=== PATIENT | male | born 1975 | race Caucasian/White ===

== ENCOUNTER 2017-11-13 09:46 | Emergency (ER) | payer MEDICAID ==
--- NOTE | 2017-11-13 09:58 | EDPHY ---
H & P Time Seen by Provider: 11/13/17 09:58 Constitutional: Initial Vital Signs Temperature (C) 36.5 C 11/13/17 09:53 Heart Rate 94 11/13/17 09:53 Respiratory Rate 16 11/13/17 09:53 Blood Pressure 154/100 H 11/13/17 09:53 O2 Sat (%) 96 11/13/17 09:53 O2 Delivery Mode Room Air Allergies/Adverse Reactions: No Known Allergies Allergy (Unverified 09/09/09 09:12) Home Medications: Medication Instructions Recorded Lisinopril 09/09/09 Lovastatin 09/09/09 Methocarbamol [Robaxin 750 mg (*)] 750 - 1,500 mg PO Q6 PRN #30 tab 09/09/09 oxyCODONE/APAP 5/325 [Percocet 5 - 10 mg PO Q4 PRN #20 tab 09/09/09 5/325] Ciprofloxacin [Cipro] 500 mg PO BID #20 tab 11/13/17 Phenazopyridine HCl [Pyridium] 200 mg PO TID #6 tab 11/13/17 Tamsulosin HCl [Flomax 0.4 MG (*)] 0.4 mg PO DAILY #10 cap 11/13/17 Medical Decision Making ED Course/Re-evaluation: CHIEF COMPLAINT: Right testicle and kidney pain HISTORY OF PRESENT ILLNESS: The patient is a 42 y/o male complaining of right testicular pain and kidney pain. Around noon yesterday, about 22 hours ago, he developed an urge to urinate but when urinating, he had difficulty producing a strong, steady stream. Symptoms continued throughout the night and included frequent urge to urinate. This morning, after urinating, he developed right testicular pain and right kidney pain. He presented to urgent care who administered pain medication and transported him to the ED. He denies hematuria , fever, or any other associated symptoms. REVIEW OF SYSTEMS: A 10 point review of systems was performed and is negative with the exception of the elements mentioned in the history of present illness. PHYSICAL EXAM: HR, BP, O2 Sat, RR. Temp noted General Appearance: Alert, well hydrated, appropriate, and non-toxic appearing. Head: Atraumatic without scalp tenderness or obvious injury Eyes: Pupils equal, round, reactive to light and accommodation, EOMI, no trauma , no injection. Ears: Clear bilaterally, no perforation, normal landmarks Nose: Atraumatic, no rhinorrhea, clear. Throat: There is no erythema or exudates, no lesions, normal tonsils, mucus membranes moist. Neck: Supple, nontender, no lymphadenopathy. Respiratory: No retractions, no distress, no wheezes, and no accessory muscle use. Lungs are clear to auscultation bilaterally. Cardiovascular: Regular rate and rhythm, no murmurs, rubs, or gallops. Gastrointestinal/Urogenital: Lower abdomen is distended, tender, and consistent with urinary retention. No masses, no rebound, no guarding, no peritoneal signs. Musculoskeletal: Normal active ROM of all extremities, atraumatic. Neurological: Alert, appropriate, and interactive. Skin: No rashes, good turgor, no nodules on palpation. Past medical history: Denies Past surgical history: Denies Family history: Non-contributory Social history: at bedside, lives in [place], employed DIAGNOSTICS/PROCEDURES/CRITICAL CARE TIME: DIFFERENTIAL DIAGNOSIS: The differential diagnosis for the patient's urinary retention included but was not limited to medication side effect, neurologic causes, outflow obstruction including prostatic hypertrophy, and infection. MEDICAL DECISION MAKING: The patient presents with frequent urge to urinate but difficulty creating a strong, steady stream, onset yesterday. He is able to urinate in dribbles. This morning he developed right testicular pain and right kidney pain. His exam indicates possible urinary retention. Plan for bladder scan to determine volume of urine in bladder, CBC, basic metabolic panel, urinalysis, and urine culture. 10:10 AM- Bladder scan indicates 45 mLs of urine in the bladder. At this time I do not feel he needs to be catheterized. 11:30 AM- UA indicative of prostatitis. He will be released with follow up with urology. He agrees to this course of action. Follow-up instructions and return precautions given. - Data Points Laboratory Results: Laboratory Results 11/13/17 10:37 11/13/17 10:43 11/13/17 11/13/17 11/13/17 10:43 10:43 10:37 WBC 7.67 10^3/uL 10^3/uL (3.80-9.50) RBC 5.08 10^6/uL 10^6/uL (4.40-6.38) Hgb 16.5 g/dL g/dL (13.7-17.5) Hct 46.8 % % (40.0-51.0) MCV 92.1 fL fL (81.5-99.8) MCH 32.5 pg pg (27.9-34.1) MCHC 35.3 g/dL g/dL (32.4-36.7) RDW 11.8 % % (11.5-15.2) Plt Count 138 10^3/uL L 10^3/uL (150-400) MPV 9.9 fL fL (8.7-11.7) Neut % (Auto) 76.2 % H % (39.3-74.2) Lymph % (Auto) 15.3 % % (15.0-45.0) [place] % (Auto) 6.4 % % (4.5-13.0) Eos % (Auto) 1.4 % % (0.6-7.6) Baso % (Auto) 0.3 % % (0.3-1.7) Nucleat RBC Rel Count 0.0 % % (0.0-0.2) Absolute Neuts (auto) 5.85 10^3/uL 10^3/uL (1.70-6.50) Absolute Lymphs (auto) 1.17 10^3/uL 10^3/uL (1.00-3.00) Absolute Monos (auto) 0.49 10^3/uL 10^3/uL (0.30-0.80) Absolute Eos (auto) 0.11 10^3/uL 10^3/uL (0.03-0.40) Absolute Basos (auto) 0.02 10^3/uL 10^3/uL (0.02-0.10) Absolute Nucleated RBC 0.00 10^3/uL 10^3/uL (0-0.01) Immature Gran % 0.4 % % (0.0-1.1) Immature Gran # 0.03 10^3/uL 10^3/uL (0.00-0.10) Sodium 140 mEq/L mEq/L (135-145) Potassium 4.3 mEq/L mEq/L (3.5-5.2) Chloride 106 mEq/L mEq/L (97-110) Carbon Dioxide 24 mEq/l mEq/l (22-31) Anion Gap 10 mEq/L mEq/L (8-16) BUN 16 mg/dL mg/dL (7-23) Creatinine 0.8 mg/dL mg/dL (0.7-1.3) Estimated GFR > 60 Glucose 92 mg/dL mg/dL (70-100) Calcium 8.0 mg/dL L mg/dL (8.5-10.4) Urine Color YELLOW Urine Appearance CLEAR Urine pH 7.0 (5.0-7.5) Ur Specific [place] 1.023 (1.002-1.030) Urine Protein 1+ H (NEGATIVE) Urine Ketones NEGATIVE (NEGATIVE) Urine Blood 2+ H (NEGATIVE) Urine Nitrate NEGATIVE (NEGATIVE) Urine Bilirubin NEGATIVE (NEGATIVE) Urine Urobilinogen 2.0 EU H EU (0.2-1.0) Ur Leukocyte Esterase NEGATIVE (NEGATIVE) Urine RBC 50-182 /hpf H /hpf (0-3) Urine WBC 5-10 /hpf H /hpf (0-3) Ur Epithelial Cells NONE SEEN /lpf /lpf (NONE-1+) Urine Mucus TRACE /lpf /lpf (NONE-1+) Urine Glucose NEGATIVE (NEGATIVE) Medications Given: Ceftriaxone Sodium/Dextrose (Rocephin 1 Gm (Premix)) 50 mls @ 100 mls/hr IV EDNOW ONE PRN Reason: Protocol Stop: 11/13/17 11:57 Last Admin: 11/13/17 11:34 Dose: 50 mls Discontinued Medications Lidocaine (Uroject Lidocaine 2% Jelly) 20 ml UR EDNOW ONE Stop: 11/13/17 10:12 Last Admin: 11/13/17 10:28 Dose: 20 ml Departure - Departure Disposition: Home, Routine, Self-Care Clinical Impression: Acute prostatitis Condition: Good Instructions: Prostatitis (ED) Additional Instructions: 1. Take Ciprofloxacin, Pyridium, and Flomax as directed. 2. Follow up with urology regarding your visit. 3. Return to the emergency department for any worsening of condition. Referrals: Cuong Quintana MD [Medical Doctor] - As per Instructions Prescriptions: Ciprofloxacin [Cipro] 500 mg PO BID #20 tab Phenazopyridine HCl [Pyridium] 200 mg PO TID #6 tab Tamsulosin HCl [Flomax 0.4 MG (*)] 0.4 mg PO DAILY #10 cap Report Scribed for: Jonathan Phillips Report Scribed by: Tamiko Black Date of Report: 11/13/17 Time of Report: 10:13
[2017-11-13 10:00] VITALS: RESP 16; TEMP 97.7
[2017-11-13] MEDS ORDERED: LIDOCAINE 2% JELLY 20 ML (UROJECT) UR ONE (10:11)
[2017-11-13 10:44] LABS: PLATELET COUNT 138 10^3/uL (150-400)
[2017-11-13 11:49] VITALS: BP 103/74; PULSE 88; O2SAT 98
== END 2017-11-13 11:48 | disposition home or self-care (01) ==
LOC: EDUNIT#
DX: N41.0 Acute prostatitis (principal)
CPT/HCPCS: 96365; J0696